=== PATIENT | male | born 1990 | race Caucasian/White ===

== ENCOUNTER 2016-11-21 07:11 | Emergency (ER) | payer SELFPAY ==
[~2016-11-21 07:11] MED LIST: ALBUTEROL0.83 MG/ML IH; IMITREX50 MG PO; NO HOME MEDICATIONS; PREDNISONE20 MG PO; PROVENTIL0.09 MG/A1 IH
[2016-11-21] MEDS ORDERED: ZOFRAN ODT8 M1 PO (11:58)
[2016-11-21 12:14] VITALS: BP 126/72
== END 2016-11-21 12:12 | disposition home or self-care (01) ==
LOC: ED 07:11
DX: K52.9 Noninfective gastroenteritis and colitis, unspecified (principal)
CPT/HCPCS: J1885; J7120

== ENCOUNTER 2018-11-20 18:52 | Emergency (ER) | payer BC ==
[~2018-11-20] VITALS: Ht 185.4 cm; Wt 136.4 kg
[~2018-11-20 18:52] MED LIST changes: +ZOFRAN ODT8 M1 PO
[2018-11-20] MEDS ORDERED: ADDERALL 30 MG30 MG PO (19:15)
[2018-11-20 20:21] LABS: EOS # 0.2 (0.04-0.40); EOS % 1.1 % (0.0-4.0); HEMATOCRIT 47.5 % (42.0-52.0); HEMOGLOBIN 15.7 g/dL (13.5-18.0); LYMPH# 2.1 (1.50-4.00); MEAN CELL VOLUME 89 fl (78-100); MEAN CORPUSCULAR HEMOGLOBIN 29 pg (27-31); MEAN CORPUSCULAR HGB CONC 33 g/dL (33-37); MEAN PLATELET VOLUME 10.4 fl (7.4-10.4); MONO # 0.7 (0.20-0.80); PLATELET COUNT 239 K/mm3 (130-400); RED BLOOD COUNT 5.36 M/mm3 (4.20-5.60); RED CELL DISTRIBUTION WIDTH 12.6 % (11.5-14.5); WHITE BLOOD COUNT 13.1 K/mm3 (4.8-10.8)
[2018-11-20 20:22] LABS: NEU # 10.1 (1.40-6.50)
[2018-11-20 20:36] LABS: ALBUMIN 4.3 g/dL (3.5-5.0); CALCIUM 10.1 mg/dL (8.4-10.2); POTASSIUM 4.2 mmol/L (3.6-5.0); TOTAL BILIRUBIN 1.3 mg/dL (0.2-1.3); TOTAL PROTEIN 7.4 g/dL (6.3-8.2)
[2018-11-20 21:05] LABS: URINE APPEARANCE HAZY; URINE COLOR DK YELLOW
[2018-11-20 21:11] LABS: URINE BILIRUBIN NEGATIVE (NEGATIVE); URINE BLOOD NEGATIVE (NEGATIVE); URINE GLUCOSE NEGATIVE (NEGATIVE); URINE KETONE 1+ (NEGATIVE); URINE LEUKOCYTE ESTERASE NEGATIVE (NEGATIVE); URINE NITRATE NEGATIVE (NEGATIVE); URINE PROTEIN(semi-quant) TRACE mg/dL (NEGATIVE); URINE UROBILINOGEN NORMAL (NORMAL)
[2018-11-20 21:12] LABS: URINE MUCUS PRESENT (NOT PRESENT)
[2018-11-20 21:50] VITALS: BP 142/84
== END 2018-11-20 21:50 | disposition home or self-care (01) ==
LOC: ED 18:52
PROVIDERS: Nurse Practitioner Family
DX: R55 Syncope and collapse (principal); M79.603 Pain in arm, unspecified; R94.5 Abnormal results of liver function studies; J45.909 Unspecified asthma, uncomplicated; G43.909 Migraine, unspecified, not intractable, without status migrainosus; F90.9 Attention-deficit hyperactivity disorder, unspecified type; Z87.891 Personal history of nicotine dependence

== ENCOUNTER 2018-12-25 17:46 | Emergency (ER) | payer SELFPAY ==
[~2018-12-25] VITALS: Ht 182.9 cm; Wt 136.4 kg
[~2018-12-25 17:46] MED LIST changes: +ADDERALL 30 MG30 MG PO
[2018-12-25] MEDS ORDERED: CEPHALEXIN500 M2 PO (18:37)
[2018-12-25 18:47] VITALS: BP 143/81
== END 2018-12-25 18:44 | disposition home or self-care (01) ==
LOC: ED 17:46
DX: S61.411A Laceration without foreign body of right hand, initial encounter (principal); G43.909 Migraine, unspecified, not intractable, without status migrainosus; J45.909 Unspecified asthma, uncomplicated; F17.210 Nicotine dependence, cigarettes, uncomplicated; Z23 Encounter for immunization; Z90.49 Acquired absence of other specified parts of digestive tract; W23.1XXA Caught, crushed, jammed, or pinched between stationary objects, initial encounter
CPT/HCPCS: 90715

== ENCOUNTER 2021-03-09 05:23 | Emergency (ER) | payer SELFPAY ==
[~2021-03-09 05:23] MED LIST changes: +CEPHALEXIN500 M2 PO
[2021-03-09] MEDS ORDERED: AUGMENTIN 875-1 EAC1 PO (06:33)
[2021-03-09 06:50] VITALS: BP 129/74
== END 2021-03-09 06:50 | disposition home or self-care (01) ==
LOC: ED 05:23
DX: H60.93 Unspecified otitis externa, bilateral (principal); H66.93 Otitis media, unspecified, bilateral; J32.9 Chronic sinusitis, unspecified; F90.9 Attention-deficit hyperactivity disorder, unspecified type; F17.200 Nicotine dependence, unspecified, uncomplicated; Z79.899 Other long term (current) drug therapy
CPT/HCPCS: J1885

== ENCOUNTER 2022-01-09 13:46 | Emergency (ER) | payer SELFPAY ==
[~2022-01-09] VITALS: Ht 185.4 cm; Wt 136.4 kg
[~2022-01-09 13:46] MED LIST changes: +AUGMENTIN 875-1 EAC1 PO
[2022-01-09] MEDS ORDERED: ADDERALL 10 MG10 MG PO (14:26)
[2022-01-09 14:40] LABS: BASO # 0.04 K/mm3 (0.02-0.10); EOS % 3.5 % (0.0-4.0); HEMATOCRIT 49.1 % (42.0-52.0); HEMOGLOBIN 16.8 g/dL (13.5-18.0); LYMPH# 1.17 K/mm3 (1.50-4.00); MEAN CELL VOLUME 89 fl (78-100); MEAN CORPUSCULAR HEMOGLOBIN 30 pg (27-31); MEAN CORPUSCULAR HGB CONC 34 g/dL (33-37); MEAN PLATELET VOLUME 9.9 fl (7.4-10.4); MONO # 0.64 K/mm3 (0.20-0.80); NEU # 6.45 K/mm3 (1.40-6.50); PLATELET COUNT 220 K/mm3 (130-400); RED BLOOD COUNT 5.54 M/mm3 (4.20-5.60); RED CELL DISTRIBUTION WIDTH 12.2 % (11.5-14.5); WHITE BLOOD COUNT 8.7 K/mm3 (4.8-10.8)
[2022-01-09 14:47] LABS: ALBUMIN 4.4 g/dL (3.5-5.0)
[2022-01-09 14:48] LABS: CALCIUM 9.7 mg/dL (8.3-10.5)
[2022-01-09 14:49] LABS: TOTAL PROTEIN 7.3 g/dL (6.4-8.3)
[2022-01-09 14:51] LABS: TOTAL BILIRUBIN 1.2 mg/dL (0.2-1.2)
[2022-01-09] MEDS ORDERED: AMOXICILLIN AND1 TA2 PO (15:12)
[2022-01-09 15:18] VITALS: BP 138/72
== END 2022-01-09 15:18 | disposition home or self-care (01) ==
LOC: ED 13:46
PROVIDERS: Physician Assistant
DX: L03.113 Cellulitis of right upper limb (principal); S61.431A Puncture wound without foreign body of right hand, initial encounter; F17.290 Nicotine dependence, other tobacco product, uncomplicated; Z23 Encounter for immunization; Z28.310 Unvaccinated for COVID-19; W45.8XXA Other foreign body or object entering through skin, initial encounter; Y99.0 Civilian activity done for income or pay
CPT/HCPCS: 90715